=== PATIENT | female | born 1955 | race Caucasian/White ===

== ENCOUNTER → 2017-09-07 | Outpatient (CLI) | payer MEDICARE ==
[~2017-09-07] MED LIST: PROZAC40 MG PO; XANAX 1MG TABLET1 MG PO
[2017-09-07 16:23] LABS: HEMOGLOBIN 13.3 g/dL (12.2-16.2); LYMPH # 2.1 K/mm3 (0.7-4.5)
[2017-09-07 17:21] LABS: BUN 8 mg/dL (7-18)
[2017-09-07 17:27] LABS: GFR (ESTIMATED) 73 ML/MIN (59-)
[2017-09-09 20:39] LABS: HBsAg Screen Negative (Negative); Hep A Ab, IgM Negative (Negative); Hep B Core Ab, IgM Negative (Negative); Hep C Virus Ab <0.1 (0.0-0.9)
[2017-09-10 08:36] LABS: Vitamin D, 25-Hydroxy 21.2 ng/mL (30.0-100.0)
== END ==
LOC: LAB 16:00
PROVIDERS: Emergency Medicine
DX: R53.83 Other fatigue (principal); E55.9 Vitamin D deficiency, unspecified; E78.5 Hyperlipidemia, unspecified